=== PATIENT | male | born 1970 | race Caucasian/White ===

== ENCOUNTER → 2018-03-07 | Outpatient (CLI) | payer BC ==
[2018-03-07 14:26] VITALS: BP 153/99; PULSE 69; TEMP 98.1; BMI 33.7
--- NOTE | 2018-03-07 15:08 | P.HPBAR ---
Bariatric H&P - History & Physicial H&P Date: 03/07/18 History & Physicial: Visit/CC: lap band follow up Patient initial contact: Initial weight: Initial weight in pounds: Height: 5 ft 11 in Initial BMI: Last weight: Current weight: 109.724 kg Current weight in pounds: 241.90 Current BMI: 33.7 [place] body weight (based on NIH guidelines): 78.018 kg Excess body weight loss: The patient is a 47 year-old M who presents for Bariatric Assessment. Patient presents today for her LAP-BAND adjustment. He currently feels hungry. He feels that there is no restriction. Has not been Been seen several years. Past Medical History Past Medical History: Hypertension History of Any Multi-Drug Resistant Organisms: None Reported Past Surgical History: Bariatric Surgery, Orthopedic Surgery Additional Past Surgical History / Comment(s): cervical fusion, lumbar fusion left shoulder surgery bone spurs, bilateral elbow surgery tendenitis Past Anesthesia/Blood Transfusion Reactions: No Reported Reaction Smoking Status: Current every day smoker Surgical - Exam Vital Signs Temp Pulse BP 98.1 F 69 153/99 03/07/18 14:23 03/07/18 14:23 03/07/18 14:23 - General well developed, no distress - Abdomen Abdomen: soft, non tender Bariatric Assessment & Plan Plan: Patient's LAP-BAND was accessed. He had significantly smaller volume than was anticipated. 2.8 mL removed from his band. Patient states that he previously had around 11 mL. I discussed the patient that he most likely has a LAP-BAND port malfunction. The patient was scheduled for replacement of LAP-BAND port Bariatric Checklist Checklist: Plan: Checklist: EGD: 1. Hiatal hernia: 2. H. Pylori: HgbA1c: Vitamin D: Smoking: Current every day smoker Primary care physician referral: Psychiatry clearance: Cardiology clearance: Sleep study: Diet journal: VTE risk score: VTE risk level: Rehab needs at discharge:
== END | disposition home or self-care (01) ==
LOC: BARWHC3 13:48
PROVIDERS: ATTEND Surgery
DX: Z48.815 Encounter for surgical aftercare following surgery on the digestive system (principal); Z98.84 Bariatric surgery status; F17.200 Nicotine dependence, unspecified, uncomplicated
CPT/HCPCS: 99212

== ENCOUNTER → 2019-08-21 | Outpatient (CLI) | payer BC ==
--- NOTE | 2019-08-22 03:39 | MR ---
EXAMINATION TYPE: MR cervical spine wo con DATE OF EXAM: 08/21/2019 COMPARISON: 05/01/2014 HISTORY: 49-year-old male with Cervicalgia TECHNIQUE: Multiplanar, multisequence images of the cervical spine were acquired. FINDINGS: No craniocervical junction abnormality, predental space widening, or prevertebral soft tissue swellin g. Prior C5-T1 ACDF changes are redemonstrated. Similar residual posterior osteophytic ridging at the fu sed C5-C6 level abutting and mildly indenting the ventral cord at this level minimally narrowing the spinal canal. Degenerative disc disease above the fusion with posterior annular fissure at C2-C3 and C3-C4 and prog ressive disc osteophyte complex formation at C4-C5 and ligamentum flavum thickening. Multilevel facet and uncovertebral joint arthropathy. At C2-C3, posterior disc protrusion with annular fissure. Facet arthropathy. No significant canal or foraminal stenosis. At C3-C4, hypertrophic facet arthropathy and uncovertebral joint degenerative change. Changes result in mild left neuroforaminal stenosis without significant spinal canal stenosis. At C4-C5, above the fusion, there is increasing left paracentral disc osteophyte complex and ligament um flavum thickening. Uncovertebral joint and facet arthropathy is present. Moderate left and mild ri ght neuroforaminal stenosis. Increased, mild overall spinal canal stenosis with abutment of both the dorsal and ventral cord. Slight ventral cord flattening. Allowing for some patchy cord artifacts from patient motion, no definite myelopathic cord signal change. At C5-C6, residual posterior osteophytic ridging abuts and mildly indents the ventral cord. Minimal o verall narrowing of the spinal canal is similar. Hyperostotic facet and uncovertebral joint changes r esult in moderate left and mild right neural foraminal stenosis. At the fused C6-C7 level, no canal or foraminal stenosis. At the fused C7-T1 level hyperostotic facet and uncovertebral joint changes resulting in moderate rig ht and mild left neuroforaminal stenosis. At the T1-T2 level, below the fusion, minimal bulging disc with hypertrophic facet arthropathy. [place] es result in moderate left neuroforaminal stenosis without spinal canal stenosis. IMPRESSION: 1. Prior C5-T1 ACDF. Residual posterior osteophytic ridging at the fused C5-C6 level is unchanged min imally narrow the spinal canal with abutment and slight indentation of the ventral cord here. No cord compression. 2. Progressive degenerative disc disease with disc osteophyte complex and ligamentum flavum thickenin g above the fusion at C4-C5. There is mild overall spinal canal stenosis here with abutment of both t he dorsal and ventral cord and slight ventral cord flattening. Alignment for motion artifact, no defi nite cord edema or master cord compression. 3. Slight progression in degenerative disc disease at additional levels compared to 05/01/2014 with po sterior annular fissures at C2-C3 and C3-C4. 4. Variable mild to moderate neural foraminal stenoses as outlined above.
== END | disposition home or self-care (01) ==
LOC: RADMRIMAIN 13:24
PROVIDERS: ATTEND Orthopaedic Surgery Orthopaedic Surgery of the Spine
DX: M48.02 Spinal stenosis, cervical region (principal); M50.321 Other cervical disc degeneration at C4-C5 level; Z98.1 Arthrodesis status
CPT/HCPCS: 72141

== ENCOUNTER → 2020-05-23 | Outpatient (CLI) | payer BC ==
--- NOTE | 2020-05-23 20:23 | ECHOS ---
STRESS ECHOCARDIOGRAM DATE OF SERVICE: 05/23/2020 CLINICAL INFORMATION: History of chest pain and palpitations. MEDICATIONS: Lisinopril, Amlodipine, Aleve. BASELINE HEART RATE: 68 BASELINE BLOOD PRESSURE: 139/86 MAXIMUM HEART RATE: 156 MAXIMUM BLOOD PRESSURE: 220/109 85% MPHR: 145 100% MPHR: 171 METS: 10.3 MAXIMUM STAGE REACHED: III TOTAL EXERCISE TIME: 9 minutes CLINICAL INFORMATION: Chest pain, palpitations. RESULTS: Baseline heart rate 68 beats per minute. Baseline blood pressure 139/86 mmHg. Baseline 12-lead ECG shows sinus rhythm with [address] elevation inferolaterally. Patient exercised on Armani protocol for 9 minutes achieving a peak heart rate of 155 beats per minute. Hypertensive response to exercise. Peak blood pressure 220/109 mmHg. There was a [address] depression at peak exercise that resolved in recovery. Occasional PVCs were noted. The baseline 2D echo images showed normal LV size and systolic function without segmental wall motion abnormalities. At peak exercise, there was excellent augmentation of overall LV contractility without developing any wall motion abnormalities. At recovery, regional global LV systolic function remained normal. IMPRESSION: 1. [address] depression with exercise on ECG but no commensurate echocardiographic changes. 2. Hypertensive response to exercise. MMODL / IJN: [id number] /
== END | disposition home or self-care (01) ==
LOC: RADNMMAIN 09:47
PROVIDERS: ATTEND Family Medicine
DX: I10 Essential (primary) hypertension (principal)
CPT/HCPCS: 93351; Q9950